=== PATIENT | male | born 1945 | race African-American/Black ===

== ENCOUNTER 2016-12-08 10:02 | Emergency (ER) | payer OTHER ==
[~2016-12-08 10:02] MED LIST: AMARYL2 MG; ASPIRIN81 M1; ATENOLOL50 MG; JANUVIA PO; METFORMIN HCL500 M1 PO; PERCOCET5/325 PO; SIMVASTATIN40 MG; [UNRECOGNIZED DRUG - REMARK] PO
== END 2016-12-08 10:32 | disposition home or self-care (01) ==
LOC: CFTX 10:02
DX: H61.22 Impacted cerumen, left ear (principal); E11.9 Type 2 diabetes mellitus without complications; I10 Essential (primary) hypertension; Z79.84 Long term (current) use of oral hypoglycemic drugs; Z88.8 Allergy status to other drugs, medicaments and biological substances; Z87.891 Personal history of nicotine dependence
CPT/HCPCS: 69210; 99283